=== PATIENT | female | born 1940 ===

== ENCOUNTER 2017-06-02 07:32 | Day surgery (SDC) | payer MEDICARE, OTHER ==
[2015-08-30 07:15] VITALS: BMI 35.0
[2017-06-02] MEDS ORDERED: Lactated Ringer's 1,000 ML IV ONE (10:50)
--- NOTE | 2017-06-02 10:50 | CP.SDSHP ---
Same Day Surgery H & P - History Proposed Procedure: COLONSCOPY Pre-Op Diagnosis: SEE NOTES - Previous Medical/Surgical History Cardiac: Hypertension Endocrine/Metabolic: Thyroid Disease, Diabetes, Other Misc: Other Pain: 2.Mild Pain - Allergies Allergies: Allergies No Known Allergies Allergy (Verified 08/30/15 07:10) - Physical Exam General Appearance: N Vital Signs: Vital Signs 06/02/17 09:25 Temperature 97 F L Pulse Rate 56 L Respiratory 19 Rate Blood Pressure 113/59 L O2 Sat by Pulse 97 Oximetry Mental Status: Alert & Oriented x3 Neuro: WNL Heart: Other Lungs: Other GI: WNL - {Optional Preform as Required} Breast: WNL Abdomen: Other Rectal: Other Integument: WNL : WNL Ortho: Other ENT: WNL - Impression Pt. Evaluated Today:Candidate for Anesthesia & Procedure: Yes - Date & Time Time: 10:50 Short Stay Discharge - Short Stay Discharge Admitting Diagnosis/Reason for Visit: COLON POLYP Disposition: HOME/ ROUTINE
[2017-06-02] MEDS ORDERED: Propofol 10 mg/ml Inj (20 ML) ONE (11:15)
[2017-06-02 11:40] VITALS: TEMP 98; O2SAT 100
[2017-06-02] MEDS ORDERED: Belladonna-Phenobarbital PO ONE (11:45)
[2017-06-02 13:29] VITALS: BP 99/49; PULSE 57; RESP 12
== END 2017-06-02 13:00 | disposition home or self-care (01) ==
LOC: C.ENDO 07:32
PROVIDERS: ATTEND Specialist
DX: K57.90 Diverticulosis of intestine, part unspecified, without perforation or abscess without bleeding (principal); K64.8 Other hemorrhoids
CPT/HCPCS: 45380; 82948; 88305; J2001; J2704; J7120